=== PATIENT | female | born 1960 | race Caucasian/White ===

== ENCOUNTER 2018-05-27 17:33 | Emergency (ER) | payer OTHER ==
[~2018-05-27] VITALS: Ht 165.1 cm; Wt 60.5 kg
--- NOTE | 2018-05-27 18:44 | NUR ---
TO ROOM 36
[2018-05-27 19:07] LABS: BASOPHILS # (AUTO) 0.09 x10^3/uL (0-0.1); BASOPHILS % (AUTO) 1 % (0-1); EOSINOPHILS # (AUTO) 0.21 x10^3/uL (0-0.4); EOSINOPHILS % (AUTO) 3 % (1-7); LYMPHOCYTES # (AUTO) 1.66 x10^3/uL (1-3.4); LYMPHOCYTES % (AUTO) 21 % (22-44); MD NO; MEAN CORPUSCULAR HEMOGLOBIN 30.2 pg (27.0-34.8); MEAN CORPUSCULAR HGB CONC 34.3 g/dL (32.4-35.8); MEAN PLATELET VOLUME 8.1 fL (7.4-10.4); MONOCYTES # (AUTO) 0.51 x10^3/uL (0.2-0.8); MONOCYTES % (AUTO) 6 % (2-9); NEUTROPHILS # (AUTO) 5.59 x10^3/uL (1.8-6.8); NEUTROPHILS % (AUTO) 69 % (42-75); PLATELET COUNT 254 x10^3/uL (130-400); RED BLOOD COUNT 4.98 x10^6/uL (3.82-5.3); RED CELL DISTRIBUTION WIDTH 13.1 % (9.6-15.2)
--- NOTE | 2018-05-27 19:07 | NUR ---
PT C/O NON REPRODUCIBLE, LUQ ABD PAIN RADIATING TO EPIGASTRIC FOR 2 DAYS. PT DENIES URINARY SYMPTOMS, FEVERS, CHILLS, OR BODY ACHES. PT HAD NORMAL BM TODAY. PT DENIES BLOOD IN HER STOOL. PT COLLECTING UA SPECIMEN. REPORT TO AD Bustillo RN.
[2018-05-27 19:18] LABS: ALANINE AMINOTRANSFERASE 24 U/L (12-78); ALBUMIN 4.4 g/dL (3.4-5.0); ANION GAP 3 mmol/L (5-15); CALCIUM 9.2 mg/dL (8.5-10.1); CHLORIDE 111 mmol/L (98-107); CREATININE 0.99 mg/dL (0.55-1.02)
[2018-05-27 19:21] LABS: ALKALINE PHOSPHATASE 82 U/L (45-117); BILIRUBIN,TOTAL 1.3 mg/dL (0.2-1.0); TOTAL PROTEIN 8.2 g/dL (6.4-8.2)
--- NOTE | 2018-05-27 19:30 | NUR ---
URINE COLLECTED/SENT TO LAB. PA IN TO SEE PT, CONFERRING WITH ED MD FOR POC. WARM BLANKETS PROVIDED TO PT AND FAMILY.
--- NOTE | 2018-05-27 19:45 | NUR ---
ADD ON CT ORDER. IV PLACED, SL. CALL LIGHT WITHIN REACH.
[2018-05-27 19:56] LABS: MICROSCOPIC AUTO
[2018-05-27 20:00] LABS: CULTURE INDICATED? YES
[2018-05-27] MEDS ORDERED: SODIUM CHLORIDE FLUSH 10ML SYR IVF ONE (20:00)
--- NOTE | 2018-05-27 20:01 | NUR ---
PT TO CT.
[2018-05-27 21:02] VITALS: BP 128/64
[2018-05-28] MEDS ORDERED: OMNIPAQUE 350 MG/ML, 100ML BOTTLE ONE (02:23)
== END 2018-05-27 21:05 | disposition home or self-care (01) ==
LOC: ED 21:00
DX: R10.13 Epigastric pain (principal); R10.12 Left upper quadrant pain; R06.02 Shortness of breath; R11.0 Nausea; Z90.710 Acquired absence of both cervix and uterus
CPT/HCPCS: 36415; 74177; 76700; 80053; 81001; 83690; 85025; 87086; 93005; 99283; 99284; Q9967

== ENCOUNTER 2018-06-02 06:47 | Day surgery (SDC) | payer OTHER ==
[~2018-06-02] VITALS: Ht 165.1 cm; Wt 58.0 kg
[2018-06-02] MEDS ORDERED: LACTATED RINGERS 1,000 ML IV SCH (07:06)
[2018-06-02 07:09] VITALS: BP 115/86
[2018-06-02] MEDS ORDERED: PROPOFOL 10 MG/ML, 20ML ONE (09:03)
== END 2018-06-02 11:00 | disposition home or self-care (01) ==
LOC: OUT 06:47
PROVIDERS: ATTEND Internal Medicine Gastroenterology
DX: K29.70 Gastritis, unspecified, without bleeding (principal); K64.8 Other hemorrhoids; K63.89 Other specified diseases of intestine; G43.909 Migraine, unspecified, not intractable, without status migrainosus; Z90.710 Acquired absence of both cervix and uterus; Z98.0 Intestinal bypass and anastomosis status; Z98.890 Other specified postprocedural states
CPT/HCPCS: 43239; 45378; 88305; 88342; J2704; J7120